=== PATIENT | female | born 2000 | race African-American/Black ===

== ENCOUNTER 2020-07-11 14:08 | Emergency (ER) | payer OTHER ==
[2020-07-11] MEDS ORDERED: ACETAMINOPHEN 325 MG TABLET PO STA (15:41)
--- NOTE | 2020-07-11 15:44 | ED Physician Documentation ---
History of Present Illness - Stated complaint Stated Complaint: FEMALE /HEADACHE - Chief complaint Chief Complaint: Neuro - Additonal information Additional information: 20-year-old female presents emergency department for evaluation of lower pelvic pain as well as headache. Newly G1, P0 LMP 05/26/2020. Patient [place] Patient states that this morning she woke up with a left-sided frontal headache. Some nausea that has been persistent since she found out she was . No vomiting. No vision changes, no slurred speech, arm or leg weakness. No history of blood clots or cancer. This is a desired but unplanned . Patient reports that last night she had some sharp mid abdominal and lower pelvic pain. Denies vaginal bleeding or discharge. Denies any pertinent past medical history. Takes no prescribed medications. Former vapor however she stopped vaping when she found out she was . Review of Systems Constitutional: denies: Fever, Chills Eyes: denies: Loss of vision, Photophobia, Irritation Ears: denies: Ear pain, Drainage/discharge Nose: reports: Congestion. denies: Rhinorrhea / runny nose, Foreign Body Throat: denies: Dental pain / toothache, Oral lesions / sores Cardiac: denies: Chest pain / pressure, Palpitations Respiratory: denies: Dyspnea, Cough GI: reports: Abdominal Pain, Nausea. denies: Constipation, Diarrhea : denies: Frequency, Hesitancy Skin: denies: Rash, Lesions Musculoskeletal: denies: Neck pain, Back pain Neurologic: reports: Headache. denies: Focal weakness, Numbness, Near syncope, Confused, Head injury, LOC PD PAST MEDICAL HISTORY - Present Medications Home Medications: Ambulatory Orders Medication Instructions Recorded Confirmed Ondansetron Odt [Zofran] 4 mg TL BID PRN #30 tablet 07/11/20 - Allergies Allergies/Adverse Reactions: Allergies Allergy/AdvReac Type Severity Reaction Status Date / Time No Known Drug Allergies Allergy Verified 07/11/20 14:38 PD ED PE EXPANDED - General General: Alert, No acute distress, Well developed/nourished - HEENT HEENT: Atraumatic, PERRL, EOMI, Ears normal, Left frontal sinus TTP, Nasal congestion. No: Right frontal sinus TTP, Left maxillary sinus TTP - Neck Neck: Supple w/out meningeal sx. No: Adenopathy - Cardiac Cardiac: Regular Rate, Radial strong equal, Pedal strong equal, Cap refill < 2 sec. No: Murmur Present - Respiratory Respiratory: Clear to ausultation pina. No: Distress, Labored - Abdomen Abdomen: Normal Bowel sounds, Tender to palpation (Nonfocal lower pelvic tenderness to palpation. No guarding or rebound.) - Back Back: Normal exam. No: Vertebral tenderness, Soft tissue tenderness - Derm Derm: Normal color, Warm and dry. No: Rash - Extremities Extremities: Normal. No: Deformity, Tenderness - Neuro Neuro: Alert and Oriented X 3, CNII-XII intact, Normal gait, Normal finger nose, Normal speech - GCS Eye Opening: Spontaneous Motor: Obeys Commands Verbal: Oriented Total: 15 Results - Vitals Vitals: Vital Signs - 24 hr 07/11/20 14:34 Temperature 36.3 C L Heart Rate 80 Respiratory 16 Rate Blood Pressure 128/63 O2 Saturation 99 Oxygen O2 Source Room air - Labs Labs: Laboratory Tests 07/11/20 07/11/20 07/11/20 15:45 15:45 15:45 Sodium 133 L Potassium 3.4 L Chloride 99 L Carbon Dioxide 24 Anion Gap 10.0 BUN 8 Creatinine 0.8 Estimated GFR (MDRD) 110 Glucose 95 Calcium 9.9 Total Bilirubin 0.6 AST 18 ALT 13 Alkaline Phosphatase 50 Total Protein 7.5 Albumin 4.6 Globulin 2.9 Albumin/Globulin Ratio 1.6 Lipase 26 HCG, Quant 18455.00 Urine Color YELLOW Urine Clarity CLEAR Urine pH 5.5 Ur Specific [place] 1.020 Urine Protein NEGATIVE Urine Glucose (UA) NEGATIVE Urine Ketones 15 H Urine Occult Blood TRACE-LYSED Urine Nitrite NEGATIVE Urine Bilirubin NEGATIVE Urine Urobilinogen 0.2 (NORMAL) Ur Leukocyte Esterase TRACE H Urine RBC 0-5 Urine WBC 0-3 Ur Squamous Epith Cells MOD Squamous H Urine Bacteria Rare Urine Mucus Few Strands Ur Microscopic Review INDICATED Urine Culture Comments NOT INDICATED Urine HCG, Qual Blood Type 07/11/20 07/11/20 15:45 17:32 Sodium Potassium Chloride Carbon Dioxide Anion Gap BUN Creatinine Estimated GFR (MDRD) Glucose Calcium Total Bilirubin AST ALT Alkaline Phosphatase Total Protein Albumin Globulin Albumin/Globulin Ratio Lipase HCG, Quant Urine Color Urine Clarity Urine pH Ur Specific [place] Urine Protein Urine Glucose (UA) Urine Ketones Urine Occult Blood Urine Nitrite Urine Bilirubin Urine Urobilinogen Ur Leukocyte Esterase Urine RBC Urine WBC Ur Squamous Epith Cells Urine Bacteria Urine Mucus Ur Microscopic Review Urine Culture Comments Urine HCG, Qual POSITIVE Blood Type O POSITIVE - Rads (name of study) Pelvic US Radiology: Final report received (Single live IUP with a gestational age of approximately 6 weeks 4 days. 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 It is typically safe to take Tylenol while for headaches. As we discussed the ultrasound showed that you have a dated to about 6 weeks 4 days. There is an incidental finding of a dermoid cyst on your right ovary. This should be discussed with your front desk monitor in follow-up on Thursday. Please return to the emergency department if you develop suddenly severe lower abdominal pain, have severe vaginal bleeding, any chest pain shortness of air or uncontrolled vomiting. I prescribed a limited amount of Zofran to help with your morning sickness and nausea.
[2020-07-11 15:52] LABS: HCG UR QUAL POSITIVE
[2020-07-11 16:00] LABS: CLARITY,URINE CLEAR (CLEAR); LEUKOCYTE ESTERASE, URINE TRACE (NEGATIVE); NITRITE,URINE NEGATIVE (NEGATIVE); PROTEIN,URINE NEGATIVE (NEGATIVE); UROBILINOGEN,URINE 0.2 (NORMAL) E.U./dL (NORMAL)
[2020-07-11 16:01] LABS: BACTERIA,URINE Rare /HPF (None Seen); BILIRUBIN,URINE NEGATIVE (NEGATIVE); GLUCOSE, URINE (UA) NEGATIVE (NEGATIVE); KETONES,URINE (UA) 15 mg/dL (NEGATIVE); MUCUS,URINE Few Strands; OCCULT BLOOD,URINE TRACE-LYSED (NEGATIVE); PH,URINE 5.5 PH (5.0-7.5); RBC,URINE 0-5 /HPF (0-5); SQUAMOUS EPITHELIAL CELL,UR MOD Squamous (<= Few); WBC,URINE 0-3 /HPF (0-5)
[2020-07-11 16:06] LABS: ALBUMIN 4.6 g/dL (3.2-5.5); ALBUMIN/GLOBULIN RATIO 1.6 (1.0-2.2); BILIRUBIN,TOTAL 0.6 mg/dL (0.2-1.0); CALCIUM 9.9 mg/dL (8.5-10.3); CREATININE 0.8 mg/dL (0.4-1.0); POTASSIUM 3.4 mmol/L (3.5-5.0); TOTAL PROTEIN 7.5 g/dL (6.7-8.2)
--- NOTE | 2020-07-11 17:50 | Ultrasound Report ---
PROCEDURE: OB First Trimester w/TV INDICATIONS: Pelvic pain OUTSIDE/PRIOR DATING DATA: Last menstrual period (LMP): 05/26/2020. LMP-based estimated date of delivery (RAEGAN): 05/03/2020. First dating scan (date and location): 07/11/2020. Estimated date of delivery (RAEGAN) from first dating scan: 05/03/2020. TECHNIQUE: Real-time scanning was performed of the fetus and maternal pelvic organs, with image documentation. Endovaginal scanning was also performed to better visualize the fetus and maternal ovaries. COMPARISON: FINDINGS: Embryo: There is a gestational sac in the uterine fundus measuring 1.95 cm. Fetus within the gestati onal sac has a crown-rump length of 0.7 cm. Average ultrasound age is 6 weeks 4 days. Measurement variability in dating: +/- 4 weeks by LMP, +/- 7 days by mean sac diameter (use before 6 weeks gestation if crown-rump length not able to be measured), +/- 5 days by crown-rump length (6-12 weeks gestation). Maternal organs: There is a right ovarian mixed echogenicity mass measuring approximately 3 cm. Cysts are present in both ovaries. IMPRESSION: Single live intrauterine gestation with average ultrasound age of 6 weeks 4 days. Mixed echogenicity mass in the right ovary may represent a dermoid. Reviewed by: Curtis Sandoval MD on 07/11/2020 5:48 PM PDT Approved by: Curtis Sandoval MD on 07/11/2020 5:48 PM PDT Station ID: [id number]
[2020-07-11 18:33] VITALS: BP 114/64
== END 2020-07-11 18:37 | disposition home or self-care (01) ==
LOC: ED 14:08
DX: O99.351 Diseases of the nervous system complicating pregnancy, first trimester (principal); G44.89 Other headache syndrome; O99.891 Other specified diseases and conditions complicating pregnancy; D27.0 Benign neoplasm of right ovary; Z3A.01 Less than 8 weeks gestation of pregnancy
CPT/HCPCS: 36415; 76801; 76817; 80053; 81001; 81025; 83690; 84702; 86900; 86901; 99284; A9270; 81003; 87086

== ENCOUNTER 2020-07-13 08:00 | Outpatient (CLI) | payer OTHER ==
[2020-07-13 18:27] LABS: MUDS CUTOFF CONCENTRATIONS CUTOFF CONC BELOW:
[2020-07-13 18:42] LABS: BILIRUBIN,URINE NEGATIVE (NEGATIVE); GLUCOSE, URINE (UA) NEGATIVE (NEGATIVE); KETONES,URINE (UA) NEGATIVE (NEGATIVE); LEUKOCYTE ESTERASE, URINE TRACE (NEGATIVE); NITRITE,URINE NEGATIVE (NEGATIVE); OCCULT BLOOD,URINE NEGATIVE (NEGATIVE); PROTEIN,URINE NEGATIVE (NEGATIVE); UROBILINOGEN,URINE 0.2 (NORMAL) E.U./dL (NORMAL)
[2020-07-13 18:44] LABS: CLARITY,URINE CLEAR (CLEAR)
[2020-07-13 18:47] LABS: AMORPHOUS SEDIMENT,UR Few /LPF; BACTERIA,URINE Few /HPF (None Seen); MUCUS,URINE Few Strands; RBC,URINE 0-5 /HPF (0-5); SQUAMOUS EPITHELIAL CELL,UR MOD Squamous (<= Few); WBC,URINE 0-3 /HPF (0-5)
[2020-07-13 18:50] LABS: AMPHETAMINE SCREEN,URINE NEGATIVE (NEGATIVE); BARBITURATE SCREEN,UR NEGATIVE (NEGATIVE); BENZODIAZEPINES SCREEN, URINE NEGATIVE (NEGATIVE); COCAINE SCREEN URINE NEGATIVE (NEGATIVE); METHADONE SCREEN, URINE NEGATIVE (NEGATIVE); METHAMPHETAMINES SCREEN, URINE NEGATIVE (NEGATIVE); OPIATE SCREEN, URINE NEGATIVE (NEGATIVE); OXYCODONE SCREEN, URINE NEGATIVE (NEGATIVE); PROPOXYPHENE SCREEN, URINE NEGATIVE (NEGATIVE); THC CANNABINOID SCREEN, URINE NEGATIVE (NEGATIVE); TRICYCLIC ANTIDEPRESSANT,URINE NEGATIVE (NEGATIVE)
== END 2020-07-13 23:59 | disposition home or self-care (01) ==
LOC: LAB.R 08:00
PROVIDERS: ATTEND Nurse Practitioner Obstetrics & Gynecology
DX: Z34.00 Encounter for supervision of normal first pregnancy, unspecified trimester (principal)
CPT/HCPCS: 80306; 81001; 87086

== ENCOUNTER 2020-08-15 08:00 | Outpatient (CLI) | payer OTHER ==
[2020-08-16 21:17] LABS: NEISSERIA GONORRHOEAE DNA NEGATIVE (NEGATIVE); TRICHOMONAS VAGINALIS DNA NEGATIVE (NEGATIVE)
[2020-08-16 21:24] LABS: CHLAMYDIA TRACHOMATIS DNA POSITIVE (NEGATIVE)
== END 2020-08-15 23:59 | disposition home or self-care (01) ==
LOC: LAB.WC 08:00
PROVIDERS: ATTEND Obstetrics & Gynecology
DX: Z11.3 Encounter for screening for infections with a predominantly sexual mode of transmission (principal)
CPT/HCPCS: 87491; 87591; 87661

== ENCOUNTER 2020-09-19 08:00 | Outpatient (CLI) | payer OTHER ==
[2020-09-19 23:30] LABS: CHLAMYDIA TRACHOMATIS DNA NEGATIVE (NEGATIVE); NEISSERIA GONORRHOEAE DNA NEGATIVE (NEGATIVE); TRICHOMONAS VAGINALIS DNA NEGATIVE (NEGATIVE)
== END 2020-09-19 23:59 | disposition home or self-care (01) ==
LOC: LAB.WC 08:00
PROVIDERS: ATTEND Obstetrics & Gynecology
DX: Z11.3 Encounter for screening for infections with a predominantly sexual mode of transmission (principal)
CPT/HCPCS: 87491; 87591; 87661

== ENCOUNTER 2020-10-01 08:00 | Outpatient (CLI) | payer OTHER ==
[2020-10-01 23:16] LABS: CHLAMYDIA TRACHOMATIS DNA NEGATIVE (NEGATIVE); NEISSERIA GONORRHOEAE DNA NEGATIVE (NEGATIVE); TRICHOMONAS VAGINALIS DNA NEGATIVE (NEGATIVE)
== END 2020-10-01 23:59 | disposition home or self-care (01) ==
LOC: LAB.WC 08:00
PROVIDERS: ATTEND Nurse Practitioner Obstetrics & Gynecology
DX: Z86.19 Personal history of other infectious and parasitic diseases (principal)
CPT/HCPCS: 87491; 87591; 87661

== ENCOUNTER 2020-10-03 08:00 | Outpatient (CLI) | payer OTHER ==
[2020-10-03 18:01] LABS: BASOPHILS % (AUTO) 0.3 %; EOSINOPHILS # (AUTO) 0.1 10^3/uL (0.0-0.7); EOSINOPHILS % (AUTO) 1.1 %; HCT - HEMATOCRIT 35.3 % (37.0-47.0); HGB - HEMOGLOBIN 11.6 g/dL (12.0-16.0); LYMPHOCYTES # (AUTO) 1.5 10^3/uL (1.5-3.5); LYMPHOCYTES % (AUTO) 24.1 %; MEAN CORPUSCULAR HEMOGLOBIN 28.2 pg (27.0-31.0); MEAN CORPUSCULAR HGB CONC 32.9 g/dL (32.0-36.0); MEAN CORPUSCULAR VOLUME 85.7 fL (81.0-99.0); MEAN PLATELET VOLUME 10.7 fL (7.9-10.8); MONOCYTES # (AUTO) 0.5 10^3/uL (0.0-1.0); MONOCYTES % (AUTO) 7.6 %; NEUTROPHILS # (AUTO) 4.2 10^3/uL (1.5-6.6); NEUTROPHILS % (AUTO) 66.7 %; PLT - PLATELET COUNT 286 10^3/uL (130-450); RED BLOOD COUNT 4.12 10^6/uL (4.20-5.40); RED CELL DISTRIBUTION WIDTH 13.6 % (12.0-15.0); WHITE BLOOD COUNT 6.2 x10^3/uL (4.8-10.8)
[2020-10-04 12:17] LABS: HEPATITIS B SURFACE ANTIGEN NON-REACTIVE (NON-REACTIVE); HEPATITIS C ANTIBODY NON-REACTIVE (NON-REACTIVE)
[2020-10-04 14:56] LABS: AFP MOM 1.24; AGE RISK DOWN SYNDROME 1 IN 1151; CALC'D GESTATIONAL AGE 18.6 weeks; CIGARETTE SMOKER? NOT GIVEN; DONOR AGE: EGG RETRIEVAL NOT GIVEN; DONOR EGG NO; EDD DETERMINED BY ULTRASOUND; ESTRIOL MOM 0.84; HX OF NEURAL TUBE DEFECTS NO; INHIBIN A MOM 0.45; INSULIN DEPEND DIABETIC NO; MATERNAL WEIGHT 182 lbs; MSS DOWN SYNDROME RISK <1 IN 5000; MSS3 TRISOMY 18 RISK <1 IN 5000; NUMBER OF FETUSES 1; PREV PREGNANCY DOWN SYND NO; RISK FOR ONTD <1 IN 5000
[2020-10-04 15:11] LABS: HIV AG/AB 4TH GEN NON-REACTIVE (NON-REACTIVE)
== END 2020-10-03 23:59 | disposition home or self-care (01) ==
LOC: LAB.WCP 08:00
PROVIDERS: ATTEND Obstetrics & Gynecology
DX: Z34.00 Encounter for supervision of normal first pregnancy, unspecified trimester (principal)
CPT/HCPCS: 36415; 81511; 85025; 86592; 86762; 86787; 86803; 86850; 86900; 86901; 87340; 87389

== ENCOUNTER 2020-10-12 18:45 | Outpatient (CLI) | payer OTHER ==
--- NOTE | 2020-10-13 00:17 | Ultrasound Report ---
PROCEDURE: OB Detailed Eval INDICATIONS: SUPERVISION OF NORMAL OUTSIDE/PRIOR DATING DATA: Last menstrual period (LMP): 05/26/2020. LMP-based estimated date of delivery (RAEGAN): 03/02/2021. First dating scan (date and location): 07/11/2020. Estimated date of delivery (RAEGAN) from first dating scan: 03/02/2021. The below data below was generated using the ultrasound RAEGAN of 03/02/2021 TECHNIQUE: Real-time scanning was performed of the fetus, with image documentation and biometric measurements. Endovaginal scanning: Not performed. COMPARISON: OB ultrasound 07/11/2020. FINDINGS: General: A single living intrauterine gestation is present. Presentation: Variable Placenta: Placental position is anterior, without previa. Amniotic fluid index: 11.6 cm, normal for gestational age. Largest pocket 3.8 cm. heart rate: 152 beats per minute. Maternal cervical canal: 4.8 cm long; normal length is 2.5 cm or more. Echogenic structure redemons trated in the right ovary measuring up to 2.2 x 1.8 x 3.0 cm, again most likely representing a dermoi d. biometrics: Biparietal diameter: 4.58 cm, 19 weeks 6 days Head circumference: 17.4 cm, 20 weeks 0 days Abdominal circumference: 14.31 cm, 19 weeks 5 days Femur length: 3.12 cm, 19 weeks 5 days Estimated gestational age from initial scan: 19 weeks 6 days. Composite gestational age from present scan: 19 weeks 5 days Estimated weight and percentile: 307 g, 36th percentile Measurement variability in biometric dating: +/- 10 days from 12-20 weeks gestation, +/- 2 weeks from 20-30 weeks gestation, +/- 3 weeks at 30 weeks gestation or later. Anatomic survey: Neuro: Ventricles are normal at less than 10 mm. Cisterna magna is normal at 3-11 mm. Cerebellum i s normal in size and morphology. Nuchal skin fold: Normal at less than 6 mm between 14 and 20 weeks gestational age. Face: Nose and lips, facial profile are normal. Spine: No evidence for spina bifida. Cervical spine not normal visualized. Heart: 4 chambered view not well visualized. Normal ventricular outflow tracts. Diaphragm: Diaphragm is intact. Stomach: Left-sided stomach is present. Kidneys: No hydronephrosis. Normal is less than 5 mm in 2nd trimester, less than 7 mm in 3rd trimester. Cord: 3 vessel cord has orthotopic insertion. Bladder: Normal in size. Extremities: All 4 extremities are visualized. IMPRESSION: 1. Single live intrauterine with appropriate interval growth. 2. Cervical spine not well visualized. No four-chamber heart view obtained. Recommend follow-up exam . 3. Otherwise, anatomic survey within normal limits. Reviewed by: Jose E Donald MD on 10/13/2020 12:16 AM PDT Approved by: Jose E Donald MD on 10/13/2020 12:16 AM PDT Station ID: [id number]
== END 2020-10-12 18:46 | disposition home or self-care (01) ==
LOC: DI 18:45
PROVIDERS: ATTEND Obstetrics & Gynecology
DX: Z34.02 Encounter for supervision of normal first pregnancy, second trimester (principal); Z3A.19 19 weeks gestation of pregnancy

== ENCOUNTER 2020-11-08 19:18 | Outpatient (CLI) | payer OTHER ==
--- NOTE | 2020-11-09 11:28 | Ultrasound Report ---
PROCEDURE: OB F/U or Repeat INDICATIONS: SUPERVISION OF OUTSIDE/PRIOR DATING DATA: Last menstrual period (LMP): 05/26/2020. LMP-based estimated date of delivery (RAEGAN): 03/02/2021. First dating scan (date and location): 07/11/2020. Estimated date of delivery (RAEGAN) from first dating scan: 03/02/2021. The below data below was generated using the ultrasound RAEGAN of 03/02/2021 TECHNIQUE: Real-time scanning was performed of the fetus, with image documentation and biometric measurements. Endovaginal scanning: Performed COMPARISON: None. FINDINGS: General: A single living intrauterine gestation is present. Presentation: Vertex Placenta: Placental position is anterior, without previa. Amniotic fluid index: 13.5 cm, normal 5-24 cm. heart rate: 160 beats per minute. Maternal cervical canal: Closed and 4.6 cm long; normal length is 2.5 cm or more. Estimated gestational age from initial scan: 23 weeks 5 days. Other: Limited anatomic evaluation demonstrated normal spine and normal four-chamber hear t. IMPRESSION: 1. Single living intrauterine . 2. Normal spine and normal 4 chambered heart. Reviewed by: Janeth Blackburn MD, PhD on 11/09/2020 11:27 AM PDT Approved by: Janeth Blackburn MD, PhD on 11/09/2020 11:27 AM PDT Station ID: [id number]
== END 2020-11-08 19:19 | disposition home or self-care (01) ==
LOC: DI 19:18
PROVIDERS: ATTEND Obstetrics & Gynecology
DX: Z34.02 Encounter for supervision of normal first pregnancy, second trimester (principal); Z3A.23 23 weeks gestation of pregnancy

== ENCOUNTER 2020-11-28 09:58 | Outpatient (CLI) | payer OTHER ==
[2020-11-28 11:47] LABS: HCT - HEMATOCRIT 35.4 % (37.0-47.0); HGB - HEMOGLOBIN 11.3 g/dL (12.0-16.0); MEAN CORPUSCULAR HGB CONC 31.9 g/dL (32.0-36.0); MEAN CORPUSCULAR VOLUME 87.8 fL (81.0-99.0); MEAN PLATELET VOLUME 10.5 fL (7.9-10.8); RED BLOOD COUNT 4.03 10^6/uL (4.20-5.40); RED CELL DISTRIBUTION WIDTH 14.3 % (12.0-15.0); WHITE BLOOD COUNT 6.7 x10^3/uL (4.8-10.8)
== END 2020-11-28 23:59 | disposition home or self-care (01) ==
LOC: LAB.S 09:58
PROVIDERS: ATTEND Obstetrics & Gynecology
DX: Z36.89 Encounter for other specified antenatal screening (principal)
CPT/HCPCS: 36415; 82950; 85027

== ENCOUNTER 2020-12-04 08:30 | Outpatient (CLI) | payer OTHER ==
[2020-12-04 09:15] LABS: GTT GLUCOSE,FASTING 88 mg/dL (70-100)
== END 2020-12-04 08:31 | disposition home or self-care (01) ==
LOC: LAB 08:30
PROVIDERS: ATTEND Obstetrics & Gynecology
DX: R73.02 Impaired glucose tolerance (oral) (principal)
CPT/HCPCS: 36415; 82951; 82952

== ENCOUNTER 2020-12-07 21:08 | Outpatient (CLI) | payer OTHER ==
[2020-12-07 21:53] VITALS: BP 103/65
--- NOTE | 2020-12-08 00:09 | PROCEDURE REPORT ---
- HPI Current EDU 03/02/21 Gestation 27 Weeks and 6 Days 1 Para 0 Vital Signs Temperature 98.4 F 12/07/20 21:52 Heart Rate 102 H 12/07/20 21:52 Respiratory Rate 16 12/07/20 21:52 Blood Pressure 103/65 12/07/20 21:52 O2 Saturation 100 12/07/20 21:52 Temperature 98.4 F 12/07/20 23:30 Heart Rate 99 12/07/20 23:30 Respiratory Rate 19 12/07/20 23:30 Blood Pressure 103/65 12/07/20 23:30 O2 Saturation 100 12/07/20 23:30 - NST Procedure NST Procedure Start Date 12/07/20 Start Time 22:10 Stop Time 22:37 Vibroacoustic Stimulation Used Yes Patient States Movement Yes: pt has felt baby move since arriving at [facility] EFM 145 mod paulino 15x15 accels no decels TOCO; quiet - Results and Plan Findings/Impression: Patient is a 20 yo at 27+6 wga who presents with decreased movement Cat I tracing/ AGA Warning signs reviewed Kick count sheets with intructions provided DC to home for routine OB follow-up DOS: 12/07/20 NST read 12/07/20
== END 2020-12-07 23:00 | disposition home or self-care (01) ==
LOC: WFO 21:08 → FBP 21:12 → WFO 23:00
PROVIDERS: ATTEND Obstetrics & Gynecology
DX: O36.8120 Decreased fetal movements, second trimester, not applicable or unspecified (principal); Z3A.27 27 weeks gestation of pregnancy
CPT/HCPCS: 59025; 99213

== ENCOUNTER 2021-01-24 09:20 | Outpatient (CLI) | payer OTHER ==
[2021-01-24 13:09] LABS: ALBUMIN 3.4 g/dL (3.2-5.5); ALBUMIN/GLOBULIN RATIO 1.2 (1.0-2.2); BILIRUBIN,TOTAL 0.4 mg/dL (0.2-1.0); CALCIUM 9.4 mg/dL (8.5-10.3); CREATININE 0.5 mg/dL (0.4-1.0); POTASSIUM 3.9 mmol/L (3.5-5.0); TOTAL PROTEIN 6.3 g/dL (6.7-8.2)
[2021-01-27 18:51] LABS: CHENODEOXYCHOLIC ACID <0.5 umol/L (< OR = 3.1); CHOLIC ACID <0.5 umol/L (< OR = 1.8); DEOXYCHOLIC ACID <0.5 umol/L (< OR = 2.4); TOTAL BILE ACIDS <1.5 umol/L (< OR = 6.8)
== END 2021-01-24 09:21 | disposition home or self-care (01) ==
LOC: LAB.N 09:20
PROVIDERS: ATTEND Obstetrics & Gynecology
DX: O26.899 Other specified pregnancy related conditions, unspecified trimester (principal); L29.9 Pruritus, unspecified
CPT/HCPCS: 36415; 80053; 82542

== ENCOUNTER 2021-02-06 16:44 | Outpatient (CLI) | payer OTHER | END 2021-02-06 16:45 | disposition home or self-care (01) | LOC: LAB 16:44 → LAB.R 16:45 | PROVIDERS: ATTEND Obstetrics & Gynecology | DX: Z36.85 Encounter for antenatal screening for Streptococcus B (principal) | CPT/HCPCS: 87797 ==

== ENCOUNTER 2021-02-10 13:12 | Outpatient (CLI) | payer OTHER ==
[2021-02-10 13:38] VITALS: BP 118/64
--- NOTE | 2021-02-10 14:03 | PROVIDER PROGRESS NOTE ---
- HPI Chief Complaint: Decreased movement Current : Current EDU 03/02/21 Gestation 37 Weeks and 1 Days 1 Para 0 Vital Signs Temperature 98.4 F 02/10/21 13:37 Heart Rate 109 H 02/10/21 13:37 Respiratory Rate 17 02/10/21 13:37 Blood Pressure 118/64 02/10/21 13:37 O2 Saturation 100 02/10/21 13:37 - Procedures Findings: Patient is a 20-year-old G1, P0 at 37 weeks 1 day gestation presenting to triage for decreased movement. She notes she had not felt baby move for a while, but since arriving to triage, she is felt much greater movement. She also said she has been having intermittent cramping/contractions. She had one this morning while at a restaurant, and [address] None since arrival. She currently has good movement, no leaking, no vaginal bleeding. She denies headache, right upper quadrant pain, changes in vision. Past medical history Denies pertinent history Past surgical history [place] teeth extraction Family history Maternal grandmother: Leukemia Social history Denies tobacco, alcohol, drugs Physical Constitutional: alert, no acute distress, well hydrated, well developed, well nourished, appropriate dress. Skin: normal turgor, normal color. Head: atraumatic, normocephalic. Cardiovascular: RRR. Respiratory: no respiratory distress. Abdomen: nondistended, nontender. Spine: normal mobility. Neurologic: normal, sensation intact, motor intact. Psych: affect and mood appropriate, normal interaction, good eye contact. FHT: 145 bpm baseline, moderate variability, accelerations present, no decelerations. [place]: Quiescent NST Procedure Start Date 02/10/21 Start Time 15:35 Stop Time 16:10 Performed 02/10/21 Read 02/10/21 Assessment and plan 20-year-old G1, P0 at 37 weeks 1 day gestation with decreased movement 1. Decreased movement -Reactive NST. Did have a very excited heart tracing initially, so had extended monitoring where fetus settles to a normal pattern. -Could not start IV, so had PO hydration 2. Abdominal cramping -UA sent, but not concerning for UTI. Did have concentrated urine and encouraged PO hydration continued at home. - Likely early labor versus Placido Guerin.
[2021-02-10 14:06] LABS: BILIRUBIN,URINE NEGATIVE (NEGATIVE); GLUCOSE, URINE (UA) NEGATIVE (NEGATIVE); KETONES,URINE (UA) 15 mg/dL (NEGATIVE); LEUKOCYTE ESTERASE, URINE NEGATIVE (NEGATIVE); NITRITE,URINE NEGATIVE (NEGATIVE); OCCULT BLOOD,URINE NEGATIVE (NEGATIVE); PROTEIN,URINE TRACE mg/dL (NEGATIVE); UROBILINOGEN,URINE 0.2 (NORMAL) E.U./dL (NORMAL)
[2021-02-10 14:07] LABS: CLARITY,URINE HAZY (CLEAR)
[2021-02-10 14:13] LABS: BACTERIA,URINE Many /HPF (None Seen); MUCUS,URINE Marked Strands; RBC,URINE 0-5 /HPF (0-5); SQUAMOUS EPITHELIAL CELL,UR MANY Squamous (<= Few)
[2021-02-10] MEDS ORDERED: LACTATED RINGERS 1,000 ML IV ONE (15:01)
== END 2021-02-10 16:20 | disposition home or self-care (01) ==
LOC: WFO 13:12 → FBP 13:16 → WFO 16:20
PROVIDERS: ATTEND Obstetrics & Gynecology
DX: O36.8130 Decreased fetal movements, third trimester, not applicable or unspecified (principal); O99.891 Other specified diseases and conditions complicating pregnancy; R10.9 Unspecified abdominal pain; Z3A.37 37 weeks gestation of pregnancy
CPT/HCPCS: 59025; 81001; 99215; J7120; 87086

== ENCOUNTER 2021-02-22 14:47 | Outpatient (CLI) | payer OTHER ==
[2021-02-22 15:07] VITALS: BP 109/73
--- NOTE | 2021-02-22 16:38 | PROVIDER PROGRESS NOTE ---
- HPI Chief Complaint: Other (low tucker) Current : Patient is a 20 yo at 38+6 wga sent from clinic for possible oligohydramnios Patient has had an uncomplicated . She was seen in clinic today and routine TUCKER was performed. Subjectively low per clinic provider. Sent to triage for evaluation with NST and BPP. Patient endorses FM. Denies LOF/VB/CTX. Vital Signs Temperature 98.2 F 02/22/21 14:58 Heart Rate 110 H 02/22/21 14:58 Respiratory Rate 16 02/22/21 14:58 Blood Pressure 109/73 02/22/21 14:58 Temperature 98.2 F 02/22/21 14:58 Heart Rate 110 H 02/22/21 14:58 Respiratory Rate 16 02/22/21 14:58 Blood Pressure 109/73 02/22/21 14:58 O2 Saturation - Exam GEN: NAD HEENT: NCAT CV: RR RESP: nl effort ABD: gravid, S&NT/ND EXT: WWP, NT. no LE EDEMA PSYCH: bright and reactive affect NEURO: A&0 BSUS performed by English Helper TUCKER 11.4 BPP 10/21 NST Cat I tracing - Procedures OB Procedure Performed: NST (BPP) NST Procedure: NST Procedure Start Time 15:35 Stop Time 16:10 EFM 145 mod paulino 15x15 accels no decels TOCO: quiet Service Date of procedure: 02/22/21 Procedure Details: 20 yo at 38+6 here for assessment of possible oligohydramnios NST CAT I tracing BPP 10/21 TUCKER 11.4 Warning signs reviewed Patient scheduled for elective IOL on 02/28/21. DOS: 02/22/21 NST read 02/22/21
--- NOTE | 2021-02-22 17:44 | Ultrasound Report ---
PROCEDURE: OB Biophysical Profile INDICATIONS: low fluid OUTSIDE/PRIOR DATING DATA: Last menstrual period (LMP): 05/26/2020. LMP-based estimated date of delivery (RAEGAN): 03/02/2021. First dating scan (date and location): 07/11/2020. Estimated date of delivery (RAEGAN) from first dating scan: 03/02/2021. The below data below was generated using the ultrasound generated RAEGAN of 03/02/2021 TECHNIQUE: Real-time scanning was performed of the fetus, with image documentation and biometric hanane surements. Biophysical profile was also obtained. Endovaginal scanning: Not performed COMPARISON: None. FINDINGS: General: A single living intrauterine gestation is present. Presentation: Vertex Placenta: Placental position is anterior, without previa. Amniotic fluid index: 11.6 cm, normal for gestational age. heart rate: 157 beats per minute. Maternal cervical canal: 4 cm cm long; closed. Estimated gestational age from initial scan: 38 weeks 6 days. Biophysical profile: Tone: 2 points. Movement: 2 points. Respiration: 2 points. Largest pocket of fluid: 2 points (5 cm). Umbilical artery Doppler: 2.6 at the placenta; 2.3 at the midsegment, 2.8 at the umbilicus Other: Right ovarian dermoid measuring 3.5 cm. IMPRESSION: Single live intrauterine gestation with normal amniotic fluid index and normal biophysical profile an d normal cord Doppler ratios. Reviewed by: Curtis Sandoval MD on 02/22/2021 5:42 PM PST Approved by: Curtis Sandoval MD on 02/22/2021 5:42 PM PST Station ID: [id number]
== END 2021-02-22 16:30 | disposition home or self-care (01) ==
LOC: WFO 14:47 → FBP 14:47 → WFO 16:30
PROVIDERS: ATTEND Obstetrics & Gynecology
DX: Z03.71 Encounter for suspected problem with amniotic cavity and membrane ruled out (principal)
CPT/HCPCS: 59025

== ENCOUNTER 2021-03-03 14:34 | Inpatient (IN) | payer OTHER ==
[2021-03-03] MEDS ORDERED: miSOPROStoL 200 MCG TABLET BC PRN (15:14)
[2021-03-03] MEDS ORDERED: CARBOPROST TROMETHAMINE 250 MCG/ML AMP IM PRN (15:14)
[2021-03-03] MEDS ORDERED: TRANEXAMIC ACID IN NACL 1,000 MG/100 ML BAG IV PRN (15:14)
[2021-03-03] MEDS ORDERED: miSOPROStoL 200 MCG TABLET PR PRN (15:14)
[2021-03-03] MEDS ORDERED: SODIUM CHLORIDE FLUSH 0.9% 10 ML SYRINGE IVP PRN ×2 (15:14→20:25)
[2021-03-03] MEDS ORDERED: METHYLERGONOVINE 0.2 MG/ML VIAL IM PRN (15:14)
[2021-03-03] MEDS ORDERED: LIDOCAINE-MPF 1% 30 ML VIAL ID PRN (15:14)
[2021-03-03] MEDS ORDERED: fentaNYL 100 MCG/2 ML VIAL IVP PRN ×2 (15:14→19:53)
[2021-03-03] MEDS ORDERED: OXYTOCIN/SODIUM CHLORIDE 500 ML IV PRN ×2 (15:14→20:25)
[2021-03-03] MEDS ORDERED: TERBUTALINE 1 MG/ML VIAL SUBQ PRN (15:14)
[2021-03-03] MEDS ORDERED: OXYTOCIN 10 UNIT/ML VIAL IM PRN (15:14)
--- NOTE | 2021-03-03 15:40 | HISTORY & PHYSICAL EXAMINATION ---
History and Physical - History and Physical HPI: 20-year-old G1, P0 at 40 weeks 1 day gestation by LMP consistent with 6-week ultrasound presenting for induction for term gestation. She has good movement. Denies loss of fluid. No MISHRA/BV or RUQP. No vaginal bleeding. Denies nausea and vomiting. Denies urinary urgency or dysuria. All other symptoms reviewed and were negative except per HPI. Course LMP: 05/26/2020 RAEGAN by LMP:03/02/2021 Initial U/S:07/11/2020@ 6w4d c/w LMP RAEGAN 03/02/2021 FINAL RAEGAN: 03/02/2021 O pos/Rubella immune VZV:immune Genetic testing:Quad negative FAS:10/12/20 EFW 36%, 3VC, placenta anterior without previa, normal TUCKER. Cervical spine & heart view NOT obtained. Repeat US completed 11/09/20- normal spine and normal 4 chambered heart noted Glucola: 1hr-144 3hr-88, 153, 119, 107 Influenza: given 12/12/20 TDAP: given 12/12/20 COVID: dose #1 04/2020; dose #2 05/2020 GBS 02/06/2021 HSV: Denies in patient and partner Breast pump Rx: printed and provided to patient MOD: anticipate . NO LONGER planning delivery in [place] pp contraception: Depo-Provera pap:03/29/2020 nilm PMH Denies pertinent history PSH [place] teeth removal OB History SH Denies tobacco, alcohol, drugs Family History Maternal grandmother: Leukemia Allergies No known drug allergies Medications vitamins Aspirin 81 mg Physical exam: Temp Pulse Resp BP Pulse Ox 98.1 F 94 20 110/72 03/03/21 14:52 03/03/21 14:52 03/03/21 14:52 03/03/21 14:52 General: Alert, oriented, no acute distress Head: Normal cephalic atraumatic Eyes: PERRLA, extraocular motions intact. Respiratory: Normal rate of respiration. No accessory muscle use, normal respiratory effort. Cardiovascular: Regular rate and rhythm Abdomen: Gravid, nontender, nondistended Extremities: Normal range of motion Neuro: Oriented x3. Normal movements Psych: Appropriate mood and affect. Normal judgment and insight SVE: 0/0/-3, posterior, medium. Mayberry score 0 FHT: 155 bpm baseline, moderate variability, accelerations present, no decelerations. [place]: Quiescent TUCKER: 4.5cm by bedside ultrasound. Plan 20-year-old G1, P0 at 40 weeks 1 day gestation by LMP consistent with 6-week ultrasound presenting for induction of labor secondary to term gestation. 1. Induction of labor -Admit to L&D, admit labs, epidural at patient's request, anticipate AROM, anticipate -Category 1 tracing, modified mayberry score 0. -Plan to induce labor starting with misoprostol 50mcg BC every 4 hours. 2. 40 weeks gestation 3. Oligohydramnios -4.5 cm by bedside ultrasound today.
[2021-03-03] MEDS ORDERED: SODIUM CHLORIDE FLUSH 0.9% 10 ML SYRINGE IVP SCH (16:00)
[2021-03-03] MEDS ORDERED: miSOPROStoL 100 MCG TABLET BC SCH (16:00)
[2021-03-03 16:54] LABS: BASOPHILS % (AUTO) 0.4 %; EOSINOPHILS % (AUTO) 0.4 %; HCT - HEMATOCRIT 32.6 % (37.0-47.0); HGB - HEMOGLOBIN 10.4 g/dL (12.0-16.0); LYMPHOCYTES # (AUTO) 1.4 10^3/uL (1.5-3.5); LYMPHOCYTES % (AUTO) 20.8 %; MEAN CORPUSCULAR HGB CONC 31.9 g/dL (32.0-36.0); MEAN CORPUSCULAR VOLUME 84.7 fL (81.0-99.0); MEAN PLATELET VOLUME 10.6 fL (7.9-10.8); MONOCYTES # (AUTO) 0.7 10^3/uL (0.0-1.0); NEUTROPHILS # (AUTO) 4.6 10^3/uL (1.5-6.6); NEUTROPHILS % (AUTO) 68.1 %; PLT - PLATELET COUNT 324 10^3/uL (130-450); RED BLOOD COUNT 3.85 10^6/uL (4.20-5.40); RED CELL DISTRIBUTION WIDTH 16.5 % (12.0-15.0); WHITE BLOOD COUNT 6.8 x10^3/uL (4.8-10.8)
[2021-03-03 17:03] LABS: ALBUMIN 3.3 g/dL (3.2-5.5); ALBUMIN/GLOBULIN RATIO 1.2 (1.0-2.2); BILIRUBIN,TOTAL 0.7 mg/dL (0.2-1.0); CALCIUM 9.2 mg/dL (8.5-10.3); CREATININE 0.6 mg/dL (0.4-1.0); POTASSIUM 3.8 mmol/L (3.5-5.0)
[2021-03-03] MEDS ORDERED: LACTATED RINGERS 1,000 ML ONE (18:22)
[2021-03-03] MEDS ORDERED: TERBUTALINE 1 MG/ML VIAL SUBQ ONE (18:31)
[2021-03-03] MEDS ORDERED: ceFAZolin 1 GM VIAL ONE (18:53)
[2021-03-03] MEDS ORDERED: MORPHINE PF 5 MG/10 ML VIAL ONE (19:01)
[2021-03-03] MEDS ORDERED: WATER FOR INJECTION,STERILE 20 ML MC ONE (19:01)
[2021-03-03] MEDS ORDERED: ePHEDrine 50 MG/ML VIAL IVP ONE (19:10)
[2021-03-03] MEDS ORDERED: BUPIVACAINE 0.5% PF 10 ML VIAL ONE (19:38)
[2021-03-03] MEDS ORDERED: KETOROLAC 30 MG/ML VIAL ONE (19:42)
[2021-03-03] MEDS ORDERED: ACETAMINOPHEN 1,000 MG/100 ML 100 ML IV ONE (19:42)
[2021-03-03] MEDS ORDERED: BUPIVACAINE 0.5% PF 10 ML VIAL SUBQ ONE ×2 (19:45→20:08)
[2021-03-03] MEDS ORDERED: HYDROmorphone 0.5 MG/0.5 ML SYRINGE IVP PRN (19:53)
[2021-03-03] MEDS ORDERED: MORPHINE 2 MG/ML CARPUJECT IVP PRN (19:53)
[2021-03-03] MEDS ORDERED: METOCLOPRAMIDE 10 MG/2 ML VIAL IVP PRN ×2 (19:53→19:54)
[2021-03-03] MEDS ORDERED: ATROPINE ABBOJECT 1 MG/10 ML SYRINGE IVP PRN (19:53)
[2021-03-03] MEDS ORDERED: ONDANSETRON 4 MG/2 ML VIAL IVP PRN ×2 (19:53→19:54)
[2021-03-03] MEDS ORDERED: NALOXONE 0.4 MG/ML VIAL IVP PRN ×2 (19:53→19:54)
[2021-03-03] MEDS ORDERED: ePHEDrine 50 MG/ML VIAL IVP PRN ×2 (19:53→19:54)
[2021-03-03] MEDS ORDERED: NALBUPHINE 10 MG/ML AMP IVP PRN (19:54)
[2021-03-03] MEDS ORDERED: diphenhydrAMINE INJ 50 MG/ML VIAL IVP PRN (19:54)
[2021-03-03] MEDS ORDERED: MORPHINE PF 5 MG/10 ML VIAL EP ONE (19:54)
--- NOTE | 2021-03-03 19:58 | ANESTHESIA ---
Pre-Anesthesia VS, & Labs - Diagnosis HR decelerations - Procedure emergent section Vital Signs: Temp Pulse Resp BP Pulse Ox 36.7 C 94 20 110/72 03/03/21 14:52 03/03/21 14:52 03/03/21 14:52 03/03/21 14:52 Height: 5 ft 3 in Weight (kg): 91.626 kg Body Mass Index: 35.7 BMI Classification: Obese - NPO Other (ate dinner) - Is Patient ?: Yes - Lab Results Current Lab Results: Laboratory Tests 03/03/21 15:40: WBC 6.8, RBC 3.85 L, Hgb 10.4 L, Hct 32.6 L, MCV 84.7, MCH 27.0, MCHC 31.9 L, RDW 16.5 H, Plt Count 324, MPV 10.6, Neut # (Auto) 4.6, Lymph # (Auto) 1.4 L, [place] # (Auto) 0.7, Eos # (Auto) 0.0, Baso # (Auto) 0.0, Absolute Nucleated RBC 0.00, Nucleated RBC % 0.0 03/03/21 15:40: Sodium 137, Potassium 3.8, Chloride 105, Carbon Dioxide 21, Anion Gap 11.0, BUN 9, Creatinine 0.6, Estimated GFR (MDRD) 153, Glucose 83, Calcium 9.2, Total Bilirubin 0.7, AST 28, ALT 17, Alkaline Phosphatase 109, Total Protein 6.0 L, Albumin 3.3, Globulin 2.7, Albumin/Globulin Ratio 1.2 03/03/21 15:40: Blood Type O POSITIVE, Antibody Screen NEGATIVE Fish Bones: 03/03/21 15:40 03/03/21 15:40 Home Medications and Allergies Active Medications Atropine Sulfate (Atropine Abboject 1 Mg/10 Ml Syringe) 0.5 mg IVP Q5M PRN PRN Reason: Bradycardia Stop: 03/04/21 19:54 Carboprost Tromethamine (Carboprost Tromethamine 250 Mcg/Ml Amp) 250 mcg IM .ONCE PRN PRN Reason: Hemorrhage Diphenhydramine HCl (Diphenhydramine Inj 50 Mg/Ml Vial) 25 mg IVP Q6H PRN PRN Reason: ITCHING Stop: 03/04/21 19:54 Ephedrine Sulfate (Ephedrine 50 Mg/Ml Vial) 10 mg IVP Q5M PRN PRN Reason: HYPOTENSION Stop: 03/04/21 19:54 Ephedrine Sulfate (Ephedrine 50 Mg/Ml Vial) 5 mg IVP Q5M PRN PRN Reason: For SBP<100;give until SBP>100 Stop: 03/04/21 19:54 Fentanyl (Fentanyl 100 Mcg/2 Ml Vial) 50 mcg IVP Q1H PRN PRN Reason: Severe Pain (score 7-10) Fentanyl (Fentanyl 100 Mcg/2 Ml Vial) 25 - 50 mcg IVP Q5M PRN PRN Reason: BREAKTHROUGH PAIN (2nd Choice) Stop: 03/04/21 19:54 Hydromorphone HCl (Hydromorphone 0.5 Mg/0.5 Ml Syringe) 0.2 - 0.6 mg IVP Q5M PRN PRN Reason: PAIN (First Choice) Stop: 03/04/21 19:54 Oxytocin/Sodium Chloride (Pitocin/Sodium Chloride) 500 mls @ 999 mls/hr IV PRN PRN; Protocol PRN Reason: POST- HEMORR PREVENTION Tranexamic Acid (Tranexamic 1,000 Mg/100ml-Nacl) 1,000 mg in 100 mls @ 600 mls/hr IV Q30M PRN PRN Reason: EBL >1200mL and within 3hr Lactated Ringer's (Lr) 1,000 mls @ 100 mls/hr IV .Q10H NILESH Stop: 03/04/21 05:59 Lidocaine HCl (Lidocaine-Mpf 1% 30 Ml Vial) 30 ml ID ONCE PRN PRN Reason: PERINEAL REPAIR Stop: 03/04/21 15:15 Methylergonovine Maleate (Methylergonovine 0.2 Mg/Ml Vial) 0.2 mg IM ONCE PRN PRN Reason: Hemorrhage Stop: 03/08/21 15:13 Metoclopramide HCl (Metoclopramide 10 Mg/2 Ml Vial) 10 mg IVP Q6HR PRN PRN Reason: N/V not relieved by Zofran Metoclopramide HCl (Metoclopramide 10 Mg/2 Ml Vial) 10 mg IVP Q6HR PRN PRN Reason: Nausea / Vomiting Stop: 03/04/21 19:54 Misoprostol (Misoprostol 200 Mcg Tablet) 600 mcg BC ONCE PRN PRN Reason: HEMORRHAGE PROTOCOL Stop: 03/08/21 15:13 Misoprostol (Misoprostol 200 Mcg Tablet) 800 mcg NH ONCE PRN PRN Reason: HEMORRHAGE PROTOCOL Stop: 03/08/21 15:13 Misoprostol (Misoprostol 100 Mcg Tablet) 50 mcg BC Q4H NILESH Last Admin: 03/03/21 16:22 Dose: 50 mcg Documented by: Morphine Sulfate (Morphine 2 Mg/Ml Carpuject) 2 - 4 mg IVP Q5M PRN PRN Reason: PAIN (3rd Choice) Stop: 03/04/21 19:54 Morphine Sulfate (Morphine Pf 5 Mg/10 Ml Vial) 0.1 mg EP ONCE ONE Stop: 03/03/21 19:55 Nalbuphine HCl (Nalbuphine 10 Mg/Ml Amp) 5 mg IVP Q4H PRN PRN Reason: ITCHING Stop: 03/04/21 19:54 Naloxone HCl (Naloxone 0.4 Mg/Ml Vial) 0.1 mg IVP Q2M PRN PRN Reason: RESP RATE <8 Stop: 03/04/21 19:54 Naloxone HCl (Naloxone 0.4 Mg/Ml Vial) 0.1 mg IVP Q2M PRN PRN Reason: RR < 8 Stop: 03/04/21 19:54 Ondansetron HCl (Ondansetron 4 Mg/2 Ml Vial) 4 mg IVP ONCE PRN PRN Reason: N/V (First Choice) Stop: 03/04/21 19:54 Ondansetron HCl (Ondansetron 4 Mg/2 Ml Vial) 4 mg IVP Q6HR PRN PRN Reason: Nausea / Vomiting Stop: 03/04/21 19:54 Oxytocin (Oxytocin 10 Unit/Ml Vial) 10 unit IM ONCE PRN PRN Reason: Step One if no IV access. Stop: 03/08/21 15:13 Sodium Chloride (Sodium Chloride Flush 0.9% 10 Ml Syringe) 10 ml IVP PRN PRN PRN Reason: NEEDED PER PROVIDER ORDERS Sodium Chloride (Sodium Chloride Flush 0.9% 10 Ml Syringe) 10 ml IVP Q8H [facility] Terbutaline Sulfate (Terbutaline 1 Mg/Ml Vial) 0.25 mg SUBQ ONCE PRN PRN Reason: Tachystole Stop: 03/08/21 15:13 Allergies/Adverse Reactions: Allergies Allergy/AdvReac Type Severity Reaction Status Date / Time No Known Drug Allergies Allergy Verified 07/11/20 14:38 Anes History & Medical History - Anesthetic History Anesthesia Complications: reports: No previous complications - Medical History Cardiovascular: reports: None Pulmonary: reports: None Smoking Status: Never smoker Exam General: Alert, Oriented x3, Cooperative Dental: WNL Neck Mobility: Normal Mallampati classification: II Thyromental Distance: greater than 6 cm Respiratory: Lungs clear Cardiovascular: Regular rate Plan Anesthesia Type: Spinal Consent for Procedure(s) Verified and Reviewed: Yes Code Status: Attempt Resuscitation ASA classification: 2-Mild systemic disease Is this case an emergency?: Yes
[2021-03-03] MEDS ORDERED: LACTATED RINGERS 1,000 ML IV SCH ×2 (20:00→21:00)
[2021-03-03] MEDS ORDERED: OXYTOCIN 10 UNIT/ML VIAL ONE (20:16)
[2021-03-03] MEDS ORDERED: LACTATED RINGERS 1,000 ML IV ONE (20:23)
[2021-03-03] MEDS ORDERED: ONDANSETRON ODT 4 MG TABLET TL PRN (20:25)
[2021-03-03] MEDS ORDERED: oxyCODONE 5 MG TABLET PO PRN (20:25)
--- NOTE | 2021-03-03 20:29 | OPERATIVE REPORT ---
Operative Report - General Admit Date: 03/03/21 Planned Procedure: Primary low transverse section Pre-Op Diagnosis: 40 weeks gestation. Category 2 tracing. Prolonged decels Procedure Performed: Primary low transverse section Post Op Diagnosis: Same, delivered - Procedure Note Primary Surgeon: Sincere Toro MD Secondary Surgeon: ZEB Donald Anesthesia Provider: Marry Martínez CRNA Anesthesia Technique: Spinal Pathology: None Estimated Blood Loss (mL): 500 Urine Output (mL): 150 Findings: APGARs of 8 and 9. Gravid uterus with normal-appearing fallopian tubes and ovaries. Complications: None - Other Other Information/Narrative: Patient was a 20-year-old G1, P0 who was admitted at 40 weeks gestation for induction of labor due to term gestation. She had incidental oligohydramnios noted on admission ultrasound. She received 1 dose of misoprostol at 1622. She had intermittent contractions and overall reassuring strip. She began having more frequent contractions and occasional decelerations, however at approximately 1605 began having a prolonged deceleration. This resolved with positional changes patient was checked and found to be closed. As we are letting the fetus recover, we noted marked variability followed by a late deceleration and then a subsequent prolonged deceleration with a section was called. Ugent section was recommended. Risks, benefits and alternatives were discussed including but not limited to infection, bleeding that may require blood products or hysterectomy for life saving measures, injury to surrounding organs including but not limited to bowel, bladder, ureters, tubes and ovaries and/or the baby. Should injury occur it could require longer/additional surgery to repair. The patient stated understanding and desired to proceed. All questions were answered posed by patient. Prior to being taken to the OR, to grams of cefazolin IV was administered. The patient was taken to the operating room,and as heart rate had recovered and heart tones were intermittently in the 170s, decision made to proceed with regional anesthesia, which was obtained easily andwas found to be adequate. She was then prepared and draped in the usual sterile fashion in the dorsal supine position with a leftward tilt displacing the uterus. Palm was draining to gravity. SCDs were on bilateral lower extremities. A pfannenstiel skin incision was then made with the scalpel and carried through to the underlying layer of fascia. The fascia was incised in the midline and the incision extended laterally with the Villegas scissors. The superior aspect of the facial incision was then grasped with the Emre clamps, elevated and the underlying rectus muscles dissected off sharply. Attention was then turned to the inferior aspect of this incision which in a similar fashion was grasped, elevated with the Emre clamps and the rectus muscle dissected off sharply. The rectus muscles were in the midline. The peritoneum identified, and entered bluntly. The peritoneal incision was then extended superiorly and inferiorly with good visualization of the bladder. The bladder blade was inserted. The Lower uterine segment was identified and incised in a transverse fashion with the scalpel. The uterine incision was then extended bluntly laterally. Artificial rupture of membranes demonstrated minimal clear fluid. The bladder blade was removed. The fetus was in a cephalic presentation with a cord around the head and around shoulders.. The infants head delivered atraumatically. The anterior shoulders were delivered followed by the posterior shoulders then the remainder of the body. The infants mouth and nose were bulb suctioned. The umbilical cord was clamped times two and cut after one minute. The was taken to the warmer for evaluation by the servicer travel trailers. The placenta was removed with gentle traction. 20 units of oxytocin were added to IVF and allowed to run freely. The uterus was exteriorized and cleared of all clots and debris. The uterine incision was inspected and found to be without any extensions and was repaired with 0 Vicryl in a running, locked fashion. A second imbricating layer was performed. Upon inspection, the repaired hysterotomy was found to be hemostatic. The uterus was firm and returned to the abdomen. The gutters were cleared of all clots and debris. The muscles were reapproximated with 2-0 Vicryl. The fascia was reapproximated with 0 Vicryl in a running fashion. The subcutaneous tissue was closed with 2-0 Vicryl. The skin was closed in a subcuticular fashion with 4-0 Vicryl. The patient tolerated the procedure well. Sponge, lap and needle counts were correct times three. The patient was taken to the recovery room in stable condition. weight is pending at this time.
[2021-03-04] MEDS: SIMETHICONE CHEW 80 MG TABLET PO PRN ×2 (01:04→08:14)
[2021-03-04] MEDS: KETOROLAC 30 MG/ML VIAL IVP SCH ×3 (01:04→14:29)
[2021-03-04] MEDS: ACETAMINOPHEN 500 MG TABLET PO SCH ×3 (01:05→16:58)
[2021-03-04] MEDS: DOCUSATE SODIUM 100 MG CAPSULE PO SCH ×2 (01:05→08:14)
[2021-03-04 05:51] LABS: BASOPHILS % (AUTO) 0.3 %; EOSINOPHILS % (AUTO) 0.2 %; HCT - HEMATOCRIT 29.5 % (37.0-47.0); HGB - HEMOGLOBIN 9.3 g/dL (12.0-16.0); LYMPHOCYTES # (AUTO) 1.6 10^3/uL (1.5-3.5); LYMPHOCYTES % (AUTO) 17.2 %; MEAN CORPUSCULAR HEMOGLOBIN 26.5 pg (27.0-31.0); MEAN CORPUSCULAR HGB CONC 31.5 g/dL (32.0-36.0); MEAN PLATELET VOLUME 9.8 fL (7.9-10.8); MONOCYTES % (AUTO) 10.5 %; NEUTROPHILS # (AUTO) 6.7 10^3/uL (1.5-6.6); NEUTROPHILS % (AUTO) 71.5 %; PLT - PLATELET COUNT 263 10^3/uL (130-450); RED BLOOD COUNT 3.51 10^6/uL (4.20-5.40); RED CELL DISTRIBUTION WIDTH 16.3 % (12.0-15.0); WHITE BLOOD COUNT 9.4 x10^3/uL (4.8-10.8)
--- NOTE | 2021-03-04 07:33 | PROVIDER PROGRESS NOTE ---
Subjective - Prog Note Date Prog Note Date: 03/04/21 Prog Note Time: 07:32 - Subjective Pt reports feeling: No change Subjective: Subjective Patient reports she is doing well. Lochia appropriate. Denies heavy bleeding. Ambulating a small amount. Pelvic and abdominal pain well-controlled. Tolerating oral intake. Diet: Regular. Has not voided since catheter removed, however very recently. Passing flatus. Denies BM. Patient is bonding with baby in room Breast feeding going well. Denies feeling lightheaded, dizzy or excessively fatigued. Objective General: Alert, oriented, no apparent distress. Cardiovascular: Regular rate. Regular rhythm. No murmur. Lungs: Clear to auscultation. Good air movement. No crackles or wheezes Abdomen: Uterus firm. Below umbilicus. Normal active bowel sounds. No guarding or rebound. Incision: Bandage in place. Extremities: Normal pedal pulses. No edema. No cords. Assessment and Plan day 1. -Routine care -Anticipate discharge tomorrow -Discussed surgery findings with patient. -Continue oral antibiotics for 2 days Objective - Vital Signs/Intake & Output Vital Signs: Vital Signs x48h Temp Pulse Resp BP 03/04/21 01:29 98.4 F 81 20 120/71 03/04/21 01:06 98.2 F 90 20 113/86 H Intake & Output: Intake & Output 03/01/21 03/02/21 03/03/21 03/04/21 23:59 23:59 23:59 23:59 Intake Total 500 1247 Output Total 285 585 Balance 215 662 - Lab Results Fish Bones: 03/04/21 05:30 03/03/21 15:40 Other Labs: Lab Results x24hrs 03/04/21 03/03/21 03/03/21 Range/Units 05:30 15:40 15:40 WBC 9.4 6.8 (4.8-10.8) x10^3/uL RBC 3.51 L 3.85 L (4.20-5.40) 10^6/uL Hgb 9.3 L 10.4 L (12.0-16.0) g/dL Hct 29.5 L 32.6 L (37.0-47.0) % MCV 84.0 84.7 (81.0-99.0) fL MCH 26.5 L 27.0 (27.0-31.0) pg MCHC 31.5 L 31.9 L (32.0-36.0) g/dL RDW 16.3 H 16.5 H (12.0-15.0) % Plt Count 263 324 (130-450) 10^3/uL MPV 9.8 10.6 (7.9-10.8) fL Neut # (Auto) 6.7 H 4.6 (1.5-6.6) 10^3/uL Lymph # (Auto) 1.6 1.4 L (1.5-3.5) 10^3/uL [place] # (Auto) 1.0 0.7 (0.0-1.0) 10^3/uL Eos # (Auto) 0.0 0.0 (0.0-0.7) 10^3/uL Baso # (Auto) 0.0 0.0 (0.0-0.1) 10^3/uL Absolute Nucleated RBC 0.00 0.00 x10^3/uL Nucleated RBC % 0.0 0.0 /100WBC Sodium 137 (135-145) mmol/L Potassium 3.8 (3.5-5.0) mmol/L Chloride 105 (101-111) mmol/L Carbon Dioxide 21 (21-32) mmol/L Anion Gap 11.0 (6-13) BUN 9 (6-20) mg/dL Creatinine 0.6 (0.4-1.0) mg/dL Estimated GFR (MDRD) 153 (>89) Glucose 83 (70-100) mg/dL Calcium 9.2 (8.5-10.3) mg/dL Total Bilirubin 0.7 (0.2-1.0) mg/dL AST 28 (10-42) IU/L ALT 17 (10-60) IU/L Alkaline Phosphatase 109 (42-121) IU/L Total Protein 6.0 L (6.7-8.2) g/dL Albumin 3.3 (3.2-5.5) g/dL Globulin 2.7 (2.1-4.2) g/dL Albumin/Globulin Ratio 1.2 (1.0-2.2) Blood Type Antibody Screen 03/03/21 Range/Units 15:40 WBC (4.8-10.8) x10^3/uL RBC (4.20-5.40) 10^6/uL Hgb (12.0-16.0) g/dL Hct (37.0-47.0) % MCV (81.0-99.0) fL MCH (27.0-31.0) pg MCHC (32.0-36.0) g/dL RDW (12.0-15.0) % Plt Count (130-450) 10^3/uL MPV (7.9-10.8) fL Neut # (Auto) (1.5-6.6) 10^3/uL Lymph # (Auto) (1.5-3.5) 10^3/uL [place] # (Auto) (0.0-1.0) 10^3/uL Eos # (Auto) (0.0-0.7) 10^3/uL Baso # (Auto) (0.0-0.1) 10^3/uL Absolute Nucleated RBC x10^3/uL Nucleated RBC % /100WBC Sodium (135-145) mmol/L Potassium (3.5-5.0) mmol/L Chloride (101-111) mmol/L Carbon Dioxide (21-32) mmol/L Anion Gap (6-13) BUN (6-20) mg/dL Creatinine (0.4-1.0) mg/dL Estimated GFR (MDRD) (>89) Glucose (70-100) mg/dL Calcium (8.5-10.3) mg/dL Total Bilirubin (0.2-1.0) mg/dL AST (10-42) IU/L ALT (10-60) IU/L Alkaline Phosphatase (42-121) IU/L Total Protein (6.7-8.2) g/dL Albumin (3.2-5.5) g/dL Globulin (2.1-4.2) g/dL Albumin/Globulin Ratio (1.0-2.2) Blood Type O POSITIVE Antibody Screen NEGATIVE
[2021-03-04] MEDS: SODIUM CHLORIDE FLUSH 0.9% 10 ML SYRINGE IVP SCH ×2 (08:13→14:29)
[2021-03-04] MEDS: cephALEXin 250 MG CAPSULE PO SCH ×2 (08:13→14:29)
[2021-03-04] MEDS: metroNIDAZOLE 250 MG TABLET PO SCH ×3 (08:13→16:58)
--- NOTE | 2021-03-04 19:28 | PROVIDER PROGRESS NOTE ---
Subjective - Prog Note Date Prog Note Date: 03/04/21 Prog Note Time: 19:26 - Subjective Subjective: Patient is doing well after unscheduled for distress. Pain is well managed. Tolerating po. Palm has been discontinued and patient has voided. has been up and OOB. Objective - Vital Signs/Intake & Output Reviewed Vital Signs: Yes Vital Signs: Vital Signs x48h Temp Pulse Resp BP Pulse Ox 03/04/21 16:11 98.4 F 93 18 102/65 100 03/04/21 11:49 98.1 F 89 18 103/64 100 Intake & Output: Intake & Output 03/01/21 03/02/21 03/03/21 03/04/21 23:59 23:59 23:59 23:59 Intake Total 500 1247 Output Total 285 1085 Balance 215 162 - Objective General Appearance: positive: No acute distress Respiratory: positive: No respiratory distress Cardiovascular: positive: Other (RR) Peripheral Pulses: 2+ Popliteal (R), 2+ Popliteal (L) Abdomen: positive: Other (aoft and appropriately tender, FF below umbi Dressing CDI) Skin: positive: Color nml, Warm Neurologic/Psychiatric: positive: Oriented x3 - Lab Results Fish Bones: 03/04/21 05:30 03/03/21 15:40 Other Labs: Lab Results x24hrs 03/04/21 Range/Units 05:30 WBC 9.4 (4.8-10.8) x10^3/uL RBC 3.51 L (4.20-5.40) 10^6/uL Hgb 9.3 L (12.0-16.0) g/dL Hct 29.5 L (37.0-47.0) % MCV 84.0 (81.0-99.0) fL MCH 26.5 L (27.0-31.0) pg MCHC 31.5 L (32.0-36.0) g/dL RDW 16.3 H (12.0-15.0) % Plt Count 263 (130-450) 10^3/uL MPV 9.8 (7.9-10.8) fL Neut # (Auto) 6.7 H (1.5-6.6) 10^3/uL Lymph # (Auto) 1.6 (1.5-3.5) 10^3/uL [place] # (Auto) 1.0 (0.0-1.0) 10^3/uL Eos # (Auto) 0.0 (0.0-0.7) 10^3/uL Baso # (Auto) 0.0 (0.0-0.1) 10^3/uL Absolute Nucleated RBC 0.00 x10^3/uL Nucleated RBC % 0.0 /100WBC Assessment/Plan - Problem List (1) delivery delivered Impression: POD#1: Patient is doing well Working in goals for discharge Encourage ambulation Anticipate DC home on POD#2
--- NOTE | 2021-03-04 23:42 | Discharge Plan ---
Discharge Plan Problem Reviewed?: Yes Disposition: Home, Self Care Condition: Good Prescriptions: Acetaminophen [Acetaminophen Extra Strength] 1,000 mg PO Q8H PRN #60 tablet PRN Reason: Pain Docusate Sodium 100Mg Capsule [Colace 100Mg Capsule] 100 - 200 mg PO BID PRN #60 cap PRN Reason: Constipation Ferrous Gluconate 324 mg PO BID #60 tablet Ibuprofen [Motrin] 600 mg PO Q6H PRN #60 tab PRN Reason: Pain oxyCODONE [Roxicodone] 2.5 - 5 mg PO Q4H PRN #24 tablet PRN Reason: Severe Pain Ascorbic Acid [Vitamin C] 250 mg PO BID 2 Days #60 tablet Diet: Regular Activity Restrictions: Additional Comments (see below) Shower Restrictions: Yes (see below) Additional Instructions or Follow Up instructions: PELVIC REST: Nothing in the vagina for 6 weeks: No intercourse, tampons, douching. You are at high risk of uterine infection during this time frame. WARNING SIGNS: Call for: -Fever greater than 100.5 -Pain that does not improve with pain medication -Heavy bleeding in which you are soaking a pad an hour for 2 hours in a row -Incision becomes hot, hard, red, starts to open, or leaks foul smelling fluid -Pain or swelling in one leg and not the other +/- shortness of breath or chest pain LIFTING: No lifting more than 10# for 4 weeks DRIVING: No driving while on narcotics BATHING/WOUND CARE: Ok to shower. Let water run over the incision. Do not soap, scrub, or apply lotion. Pat dry with a clean towel or mikki a chair post machine operator. The surgical stickers will start to peel off and you can remove them when they do. Otherwise, the provider will remove them at your one week follow-up appointment. OK to use an unscented sanitary napkin or clean washcloth to keep the incision dry if the belly folds over the incision. MEDICATIONS: Ibuprofen 600 mg by mouth every 6 hours as needed for pain Acetaminophen 500-1000 mg by mouth every 8 hours as needed for pain Docusate 100-200 mg by mouth twice a day as needed for constipation Oxycodone 5 mg by mouth every 4 hours as needed for pain Iron gluconate 324 mg by mouth twice a day Vitamin C 250 mg by mouth twice a day with iron No Smoking: If you smoke, Please STOP! Call for help. Follow-up with: Shwetha Villalta MD [Provider Admit Priv/Credential] -
[2021-03-05] MEDS: SIMETHICONE CHEW 80 MG TABLET PO PRN ×2 (00:20→08:47)
[2021-03-05] MEDS: ACETAMINOPHEN 500 MG TABLET PO SCH ×2 (00:20→08:47)
[2021-03-05] MEDS: IBUPROFEN 600 MG TABLET PO SCH ×3 (00:20→16:15)
[2021-03-05] MEDS: DOCUSATE SODIUM 100 MG CAPSULE PO SCH ×2 (00:20→08:47)
--- NOTE | 2021-03-05 08:06 | DISCHARGE SUMMARY ---
Discharge Summary Admit Date: 03/03/21 Discharge Date: 03/05/21 Discharging Provider: Sincere Toro MD Code Status: Attempt Resuscitation Condition at Discharge: Good Discharge Disposition: 01 Home, Self Care - DIAGNOSES Admission Diagnoses: Term gestation Oligohydramnios Discharge Diagnoses with Status of Each Condition: Term gestation: Delivered Oligohydramnios: Delivery Status post primary low transverse section: Delivered Category 2 tracing: Delivered - HPI History of Present Illness: Subjective Patient reports she is doing well. Lochia appropriate. Denies heavy bleeding. Ambulating. Pelvic and abdominal pain well-controlled. Tolerating oral intake. Diet: Regular. Voiding without difficulty. Passing flatus. Denies BM. Patient is bonding with baby in room Breast feeding going well. Supplementing with bottles. Denies feeling lightheaded, dizzy or excessively fatigued. Objective General: Alert, oriented, no apparent distress. Cardiovascular: Regular rate. Regular rhythm. No murmur. Lungs: Clear to auscultation. Good air movement. No crackles or wheezes Abdomen: Uterus firm. Below umbilicus. Normal active bowel sounds. No guarding or rebound. Incision: Clean, dry, and intact. Extremities: Normal pedal pulses. No edema. No cords. - HOSPITAL COURSE Hospital Course: Patient is a 20-year-old G1, P0 who presented at 40 weeks 1 day gestation for induction of labor secondary to term gestation. She was found to have oligohydramnios at time of arrival. She was started on a dose of misoprostol for labor induction. Approximately 3 hours after this dose, she had a prolonged deceleration followed by marked variability. We discussed section at that time if condition worsen. She continued to have variable decelerations and received terbutaline. At that time we agreed to perform an urgent section. Surgery was unremarkable, and patient had an end uncomplicated course. She was discharged on day 2 with her . - ALLERGIES Allergies/Adverse Reactions: Allergies Allergy/AdvReac Type Severity Reaction Status Date / Time No Known Drug Allergies Allergy Verified 07/11/20 14:38 - MEDICATIONS Home Medications: Ambulatory Orders Medication Instructions Recorded Confirmed Ondansetron Odt [Zofran] 4 mg TL BID PRN #30 tablet 07/11/20 Acetaminophen [Acetaminophen Extra 1,000 mg PO Q8H PRN #60 tablet 03/04/21 Strength] Ascorbic Acid [Vitamin C] 250 mg PO BID 2 Days #60 tablet 03/04/21 Docusate Sodium 100Mg Capsule 100 - 200 mg PO BID PRN #60 cap 03/04/21 [Colace 100Mg Capsule] Ferrous Gluconate 324 mg PO BID #60 tablet 03/04/21 Ibuprofen [Motrin] 600 mg PO Q6H PRN #60 tab 03/04/21 oxyCODONE [Roxicodone] 2.5 - 5 mg PO Q4H PRN #24 tablet 03/04/21 - LABS Result Diagrams: 03/04/21 05:30 03/03/21 15:40 - FOLLOW UP Follow Up: With Dr. Ambar MD in one week for incision check. - TIME SPENT Time Spent in Discharge (Minutes): 20
[2021-03-05] MEDS: cephALEXin 250 MG CAPSULE PO SCH (08:46)
[2021-03-05] MEDS: metroNIDAZOLE 250 MG TABLET PO SCH ×2 (08:47→12:00)
[2021-03-05 16:59] VITALS: BP 124/78
== END 2021-03-05 17:05 | disposition home or self-care (01) | DRG 788 ==
LOC: WFO 14:34 → FBP 14:37 → WFO 15:14 → FBP 15:14
PROVIDERS: ADMIT Obstetrics & Gynecology; ATTEND Obstetrics & Gynecology
PROC: 3E033VJ Introduction of Other Hormone into Peripheral Vein, Percutaneous Approach (ICD-10-PCS; 2021-03-03)
PROC: 3E0DXGC Introduction of Other Therapeutic Substance into Mouth and Pharynx, External Approach (ICD-10-PCS; 2021-03-03)
PROC: 10D00Z1 Extraction of Products of Conception, Low, Open Approach (ICD-10-PCS; principal; 2021-03-03 18:45)
DX: O41.03X0 Oligohydramnios, third trimester, not applicable or unspecified (principal); O76 Abnormality in fetal heart rate and rhythm complicating labor and delivery; Z3A.40 40 weeks gestation of pregnancy; Z37.0 Single live birth
CPT/HCPCS: 36415; 80053; 85025; 86850; 86900; 86901; A9270; J0131; J2274; J7120